=== PATIENT | female | born 1940 | race Caucasian/White ===

== ENCOUNTER → 2016-08-22 | Outpatient (CLI) | payer OTHER | LOC: FIMAGING 09:53 | PROVIDERS: ATTEND Internal Medicine | DX: Z12.31 Encounter for screening mammogram for malignant neoplasm of breast (principal) | CPT/HCPCS: G0202 ==

== ENCOUNTER → 2016-08-28 | Outpatient (CLI) | payer OTHER | LOC: FIMAGING 12:53 | PROVIDERS: ATTEND Internal Medicine | DX: Z12.39 Encounter for other screening for malignant neoplasm of breast (principal); N63 Unspecified lump in breast | CPT/HCPCS: 76641; G0206 ==

== ENCOUNTER → 2017-11-11 | Outpatient (CLI) | payer OTHER | LOC: FIMAGING 07:31 | PROVIDERS: ATTEND Physician Assistant | DX: K80.20 Calculus of gallbladder without cholecystitis without obstruction (principal) ==

== ENCOUNTER 2018-05-07 07:19 | Day surgery (SDC) | payer OTHER ==
[~2018-05-07 07:19] MED LIST: BUPIVACAINE 0.25% 30 ML SDV ONE
[2018-05-07] MEDS ORDERED: ceFAZolin 2 GM/DEXTROSE 100 ML IV ONE (07:35)
[2018-05-07] MEDS ORDERED: LR 1,000 ML IV ONE (07:36)
[2018-05-07] MEDS ORDERED: MIDAZOLAM 2 MG/2 ML VIAL IVP ONE (08:08)
--- NOTE | 2018-05-07 08:08 | PDANEPAE ---
ANE Past Medical History - Cardiovascular History Hx Hypertension: No Hx Arrhythmias: No Hx Chest Pain: No Hx Coronary Artery / Peripheral Vascular Disease: No Hx CHF / Valvular Disease: No Hx Palpitations: No - Pulmonary History Hx COPD: No Hx Asthma/Reactive Airway Disease: No Hx Recent Upper Respiratory Infection: No Hx Oxygen in Use at Home: No Hx Sleep Apnea: No Sleep Apnea Screening Result - Last Documented: Negative - Neurologic History Hx Cerebrovascular Accident: No Hx Seizures: No Hx Dementia: No - Endocrine History Hx Diabetes: No - Renal History Hx Renal Disorders: No - Liver History Hx Hepatic Disorders: Yes Hepatic History Comment: GALLSTONES - Neurological & Psychiatric Hx Hx Neurological and Psychiatric Disorders: Yes Neurological / Psychiatric History Comment: ANXIETY - Cancer History Hx Cancer: No - Congenital Disorder History Hx Congenital Disorders: No - GI History Hx Gastrointestinal Disorders: Yes Gastrointestinal History Comment: IBS. OCCASIONAL HEARTBURN. HX OF POLYPS - Other Health History Other Health History: CHRONIC LOWER BACK PAIN/DDD. ARTHRITIS - Chronic Pain History Chronic Pain: Yes (RT UPPER QUADRANT) - Surgical History Prior Surgeries: HYSTERECTOMY 2011. JANAE CATARACT. RT BREAST BX ANE Review of Systems Review of Systems: - Exercise capacity METS (RN): 4 METS ANE Patient History - Allergies Allergies/Adverse Reactions: Sulfa (Sulfonamide Antibiotics) Allergy (Mild, Verified 11/02/09 14:39) Rash Milk Containing Products [dairy] Allergy (Verified 04/29/18 10:28) GI UPSET - Home Medications Home Medications: Estradiol [ESTRADIOL] 0.5 mg PO DAILY 04/08/12 [Last Taken 2 Days Ago ~05/05/18] Clobetasol 0.05% 05/07/18 [Last Taken 05/05/18] - NPO status NPO Since - Liquids (Date): 05/07/18 NPO Since - Liquids (Time): 05:30 NPO Since - Solids (Date): 05/06/18 NPO Since - Solids (Time): 22:00 - Smoking Hx Smoking Status: Never smoked ANE Labs/Vital Signs - Vital Signs Blood Pressure: 138/60 Heart Rate: 66 Respiratory Rate: 16 O2 Sat (%): 97 Height: 162.56 cm Weight: 64.864 kg ANE Physical Exam - Airway Neck exam: FROM Mallampati Score: Class 2 Mouth exam: normal dental/mouth exam - Pulmonary Pulmonary: no respiratory distress - Cardiovascular Cardiovascular: regular rate and rhythym - ASA Status ASA Status: II ANE Anesthesia Plan Anesthesia Plan: general endotracheal anesthesia
[2018-05-07] MEDS ORDERED: fentaNYL 100 MCG/2 ML INJ ONE ×3 (08:19→09:55)
[2018-05-07] MEDS ORDERED: PROPOFOL/EMULSION 500 MG/50 ML BOTTLE IV ONE ×2 (08:20→09:13)
--- NOTE | 2018-05-07 08:20 | PDHPUP ---
History & Physical Update H&P update statement: This history and physical update is based on an assessment of the patient which was completed after admission or registration (within 24 hours), but prior to the surgery/procedure. H&P update: H&P reviewed & patient examined, no change in patient's condition since H&P completed
[2018-05-07] MEDS ORDERED: ROCURONIUM 50 MG/5 ML VIAL ONE (08:21)
[2018-05-07] MEDS ORDERED: ONDANSETRON 4 MG/2 ML VIAL ONE ×2 (08:21→10:21)
[2018-05-07] MEDS ORDERED: LIDOCAINE 2% 100 MG/5 ML SYR ONE (08:21)
[2018-05-07] MEDS ORDERED: DEXAMETHASONE 4 MG/ML VIAL ONE (08:21)
[2018-05-07] MEDS ORDERED: SUGAMMADEX SODIUM 200 MG/2 ML VIAL IVP ONE (09:20)
--- NOTE | 2018-05-07 09:41 | POSTOPPROG ---
Post Op Note Date of Operation: 05/07/18 Surgeon: Vel Helm (, FACS) Ornamenter Hand: Marissa Gomez PA-C Anesthesiologist: Lucius Wahl MD Anesthesia: GET(General Endotracheal) Pre-op Diagnosis: cholelithiasis/chronic cholecystitis Post-op Diagnosis: same Procedure: lap cholecystectomy Findings: chronic inflammatory changes Inf/Abcess present in the surg proc area at time of surgery?: No
[2018-05-07] MEDS ORDERED: ALBUTEROL 3 ML DEYVIAL IH PRN (09:42)
[2018-05-07] MEDS ORDERED: NALOXONE HCL 0.4 MG/ML INJ IVP PRN (09:42)
[2018-05-07] MEDS ORDERED: ONDANSETRON 4 MG/2 ML VIAL IVP PRN (09:42)
[2018-05-07] MEDS ORDERED: METOCLOPRAMIDE 10 MG/2 ML VIAL IVP PRN (09:43)
--- NOTE | 2018-05-07 09:43 | POSTANESTH ---
Post Anesthetic Evaluation Cardiovascular Status: Similar to Pre-Op Cond Respiratory Status: Similar to Pre-op Cond. Level of Consciousness/Mental Status: Mildly Sleepy, Arousable Pain Control: Adequate, Prn Tx Ordered Nausea/Vomiting Control: Adequate, Prn Tx Ordered Complications Possibly Related to Anesthesia: None Noted
[2018-05-07] MEDS: fentaNYL 100 MCG/2 ML INJ IVP PRN ×2 (09:58→10:18)
[2018-05-07] MEDS ORDERED: LR 1,000 ML IV SCH (10:00)
[2018-05-07] MEDS ORDERED: KETOROLAC 15 MG/1 ML SDV ONE (10:21)
[2018-05-07 10:59] VITALS: BP 128/80
[2018-05-07] MEDS ORDERED: HYDROCODONE/APAP 5/325 TAB ONE (11:27)
[2018-05-07] MEDS ORDERED: HYDROCODONE/APAP 5/325 TAB PO ONE (11:45)
[2018-05-07] MEDS ORDERED: KETOROLAC 15 MG/1 ML SDV IVP SCH (12:00)
--- NOTE | 2018-05-07 12:50 | GOP ---
[f rep st] OPERATIVE REPORT DATE OF OPERATION: SURGEON: Vel Helm MD, FACS RADIO INTERFERENCE SUPERVISOR: Marissa Gomez PA-C. ANESTHESIA: General endotracheal. ANESTHESIOLOGIST: Chacorta Wahl MD. PREOPERATIVE DIAGNOSIS: Chronic cholecystitis and cholelithiasis. POSTOPERATIVE DIAGNOSIS: Chronic cholecystitis and cholelithiasis. PROCEDURE PERFORMED: Laparoscopic cholecystectomy. FINDINGS: Mild, chronic-appearing cholecystitis. No significant intraabdominal adhesions. ESTIMATED BLOOD LOSS: 5 mL. DESCRIPTION OF PROCEDURE: After informed consent was obtained, the patient was brought to the operating room and placed under general anesthesia. The abdomen was prepped and draped in usual fashion. Before proceeding, a time-out and identification of the patient were performed. A prior robotic hysterectomy had been performed and she had an access port incision above the umbilicus. This was infiltrated with Marcaine and incised longitudinally. Dissection carried out down to the midline fascia. The fascia was incised with cautery. The peritoneum was incised. The peritoneal cavity was entered and a 12 mm bladeless trocar established. A pneumoperitoneum was established with CO2 gas to a pressure of 15 mmHg. A 30-degree 5 mm scope was introduced and the peritoneal cavity was visualized. Additional 5 mm ports were placed in the subxiphoid position to the right of the falciform ligament in the right upper quadrant midclavicular line and right upper quadrant anterior axillary line. This allowed introduction of atraumatic grasping forceps. The gallbladder was grasped by the fundus and retracted cephalad, elevating the liver edge. There was evidence of mild chronic inflammation. The infundibulum of the gallbladder was grasped and manipulated anteriorly and posteriorly, which allowed dissection of the peritoneum away from the structures in the triangle of Calot. This was performed with the Harmonic Scalpel. The cystic artery presented posteriorly of the duct and this was dispatched with a Harmonic Scalpel. The cystic duct was doubly hemoclipped and divided. The gallbladder was dissected away from the liver edge using the Harmonic Scalpel with minimal blood loss. The gallbladder was retrieved through the umbilical port site. Operative field appeared hemostatic. The pneumoperitoneum was evacuated. All ports were removed. The umbilical fascial defect was repaired with interrupted 0 Vicryl suture. Subcutaneous tissues with 3-0 Monocryl suture. Skin was closed with 4-0 Monocryl suture in a subcuticular fashion. Topical Dermabond was applied. The patient was returned extubated to the recovery room in satisfactory condition. Needle, sponge and instrument counts were correct. COMPLICATIONS: None. /[id number]/MODL MTDD
== END 2018-05-07 12:21 | disposition home or self-care (01) ==
LOC: FSGY 07:19
PROVIDERS: ATTEND Surgery
PROC: 0FT44ZZ Resection of Gallbladder, Percutaneous Endoscopic Approach (ICD-10-PCS; principal; 2018-05-07 08:45)
DX: K80.20 Calculus of gallbladder without cholecystitis without obstruction (principal); M54.5 Low back pain; F41.9 Anxiety disorder, unspecified; Z90.710 Acquired absence of both cervix and uterus
CPT/HCPCS: J0690; J1100; J1885; J2001; J2250; J2405; J2704; J3010